=== PATIENT | female | born 2000 | race Caucasian/White ===

== ENCOUNTER → 2019-06-25 | Outpatient (CLI) | payer OTHER, SELFPAY ==
[2018-11-01 11:14] VITALS: BMI 27.4
[2019-06-25 15:41] LABS: Hematocrit 42.8 % (37-47); Hemoglobin 14.3 g/dL (12.0-15.0); Mean Corp Hgb Conc 33.4 g/dL (32-36); Mean Corpuscular Hgb 30.2 pg (27.0-32.0); Mean Corpuscular Volume 90.3 fL (81-99); Mean Platelet Vol. 9.3 fl (6.2-12.0); Platelet Count 309 K/mm3 (150-450); RBC Distribution Width CV 12.2 % (11.6-14.6); RBC Distribution Width SD 40.8 fl (35.1-43.9); Red Blood Count 4.74 M/mm3 (4.2-5.4); White Blood Count 5.8 K/mm3 (4.4-11.0)
[2019-06-25 16:04] LABS: Thyroid Stim Hormone (TSH) 0.51 uIU/mL (0.358-3.74)
[2019-06-27 16:40] LABS: Free T3 2.9 pg/mL (2.18-3.98); T4 Free Direct 1.04 ng/dL (0.76-1.46)
== END | disposition home or self-care (01) ==
PROVIDERS: Visit Provider Obstetrics & Gynecology
DX: N92.0 Excessive and frequent menstruation with regular cycle (principal)
CPT/HCPCS: 36415; 84439; 84443; 84481; 85027

== ENCOUNTER → 2019-08-19 05:59 | Outpatient (CLI) | payer OTHER, SELFPAY ==
[2018-11-01 11:14] VITALS: BMI 27.4
[2019-08-19 07:11] LABS: Hematocrit 42.1 % (37-47); Hemoglobin 13.7 g/dL (12.0-15.0); Mean Corp Hgb Conc 32.5 g/dL (32-36); Mean Corpuscular Hgb 29.5 pg (27.0-32.0); Mean Corpuscular Volume 90.7 fL (81-99); Mean Platelet Vol. 9.5 fl (6.2-12.0); Platelet Count 319 K/mm3 (150-450); RBC Distribution Width CV 12.5 % (11.6-14.6); RBC Distribution Width SD 41.2 fl (35.1-43.9); Red Blood Count 4.64 M/mm3 (4.2-5.4); White Blood Count 8.1 K/mm3 (4.4-11.0)
[2019-08-19 07:17] LABS: Prothrombin Time (Protime)PT. 13.1 SECONDS (11.7-14.9)
[2019-08-19 07:50] LABS: ALB/GLOB Ratio 1.2 RATIO (0.9-2.4); AST(SGOT) 6 U/L (15-37); Alanine Aminotransfer ALT/SGPT 17 U/L (13-56); Alkaline Phosphatase 51 U/L (45-117); Anion Gap 8 (5-15); BUN 12 mg/dL (7-18); Calcium,Total 8.9 mg/dL (8.5-10.1); Chloride 104 mmol/L (98-107); Creatinine, Serum 0.75 mg/dL (0.55-1.02); EST Glomerular Filtration Rate 105 mL/min (>60); Est Glom Filt Rate - Afr Amer 127 mL/min (>60); Globulin 3.4 g/dL (2.2-4.2); Glucose 78 mg/dL (74-106); Potassium 3.6 mmol/L (3.5-5.1); Protein, Total 7.4 g/dL (6.4-8.2); Sodium Level 138 mmol/L (136-145); Thyroid Stim Hormone (TSH) 2.39 uIU/mL (0.358-3.74)
[2019-08-24 03:06] LABS: Factor VIII Activity 102 % (56-140); von Willebrand Factor Activity 108 % (50-200)
[2019-08-24 13:45] LABS: VWD Studies Interp Report Note (.); von Willebrand Factor (vWF) Ag 122 % (50-200)
== END ==
PROVIDERS: Family Provider Student in an Organized Health Care Education/Training Program; PCP Student in an Organized Health Care Education/Training Program; Referring Provider Student in an Organized Health Care Education/Training Program; Visit Provider Student in an Organized Health Care Education/Training Program
DX: R42 Dizziness and giddiness (principal); R53.83 Other fatigue; R23.8 Other skin changes; E27.40 Unspecified adrenocortical insufficiency
CPT/HCPCS: 36415; 80053; 82533; 84443; 85027; 85240; 85245; 85246; 85610

== ENCOUNTER → 2019-11-26 13:50 | Outpatient (CLI) | payer OTHER, SELFPAY ==
[2019-11-13 15:53] VITALS: BMI 25.2
--- NOTE | 2019-11-26 13:50 | ECHOD_ITS ---
Reason For Study: SYNCOPE/NEAR SYNCOPE Procedure This was a 2D Doppler, Color Flow transthoracic echocardiogram. Exam performed in department. Left Ventricle Normal LV size. Left ventricular systolic function is normal. The estimated ejection fraction is 60 %. Normal diastology for age. No regional wall motion abnormalities noted. Right Ventricle Normal RV size. Normal systolic function. Atria Normal left atrium. Normal right atrium. Mitral Valve Normal mitral valve. Tricuspid Valve Normal tricuspid valve. Aortic Valve Normal aortic valve. Trisinus/trileaflet aortic valve. Pulmonic Valve Normal pulmonic valve. Great Vessels Normal aortic root. Pericardium/Pleural No pericardial effusion. MMode/2D Measurements & Calculations LVIDd: 4.4 cm IVSd: 0.61 cm Ao root diam: 2.5 cm LVIDs: 2.9 cm LVPWd: 0.69 cm RVDd: 2.8 cm FS: 35.9 % LAV(MOD-bp): 43.9 ml LA A4 area: 16.4 cm2 LA dimension(2D): 3.3 cm LAV(MOD-bp) Indexed: 27.9 ml/m2 LAV(MOD-sp2): 42.3 ml LAV(MOD-sp4): 42.3 ml RA A4 area: 16.3 cm2 Time Measurements MV dec time: 0.20 sec Doppler Measurements & Calculations MV E max feliciano: 97.2 cm/sec Lat Peak E' Feliciano: 22.3 cm/sec Med Peak E' Feliciano: 16.8 cm/sec MV A max feliciano: 51.7 cm/sec E/E' lat: 4.4 E/E' med: 5.8 MV E/A: 1.9 Ao V2 max: 132.9 cm/sec LV V1 max: 115.3 cm/sec PA V2 max: 99.0 cm/sec Ao max P.1 mmHg LV V1 max P.3 mmHg TR max feliciano: 230.9 cm/sec TR max P.4 mmHg Interpretation Summary Normal LV size. Left ventricular systolic function is normal. The estimated ejection fraction is 60 %. Structurally normal valves. Ordering Physician: José Miguel Valladares Referring Physician: Alcides Siddiqui Performed By: Olga Schmitt RDCS, RVT
== END ==
PROVIDERS: PCP Student in an Organized Health Care Education/Training Program; Referring Provider Internal Medicine Cardiovascular Disease; Visit Provider Internal Medicine Cardiovascular Disease
DX: I95.1 Orthostatic hypotension (principal)
CPT/HCPCS: 93306

== ENCOUNTER → 2020-08-04 11:40 | Outpatient (CLI) | payer OTHER, SELFPAY ==
[2020-04-22 09:28] VITALS: BMI 23.2
[2020-08-06 15:20] LABS: HPV Reflexed? NOT INDICATED
== END | disposition home or self-care (01) ==
LOC: LABSPEC 11:41
PROVIDERS: PCP Student in an Organized Health Care Education/Training Program; Visit Provider Obstetrics & Gynecology
CPT/HCPCS: 88175; G0145

== ENCOUNTER 2020-10-13 14:30 | Outpatient (RCR) | payer OTHER, SELFPAY ==
[2019-11-13 15:53] VITALS: BMI 25.2
--- NOTE | 2020-04-16 18:35 | MASS.EVAL_ITS ---
Massage Therapy Evaluation: Initial Evaluation Date: 04/15/2020 SUBJECTIVE: Fabiola is a 19 year old female who was referred to the [facility] facility for a massotherapy evaluation by Dr. Alcides Siddiqui with the diagnosis of back pain. She presents today with the symptoms of pain, stiffness and tension in the neck, mid back, low back and hips. Fabiola reports having a past medical history of neck, back pain and hip pain. She reports that she has a history of skin conditions: hidradentitis suppurativa and seborrhea, and a heart condition Dx: POTS. She reports having minimal improvement with exercise and stretching and has had these symptoms for many years. OBJECTIVE: Upon observation Fabiola has some posture issues with her head and shoulders forward from the neutral position in sitting and standing. After examination and palpation, I found Fabiola to have high muscle tension with tenderness and myofascial restrictions in her pectorals, sub occipitals, levator scapulae, trapezius, rhomboids, scalenes, and thoracic paraspinals. Her QL?s, lumbar paraspinals, piriformis, glute medius and minimus all were very tight with fascial restrictions, tender points and trigger points. The first treatment consisted of a one hour massage to her upper body and posterior lower ext. with myofascial release, muscle stripping, trigger point compression techniques, and cervical manual traction. ASSESSMENT: I feel that Fabiola is a good candidate for massotherapy at this time. She had a favorable response to the first treatment with reduction in her muscle aches, pain and tension. She also had improvement in her cervical flexibility and low back flexibility. PLAN: The plan of care was reviewed with the patient. The patient is to be seen on an as needed basis for a total of ten sessions with the recommendation of one-two times per month for a one hour treatment.
--- NOTE | 2020-10-13 18:54 | MASS.DISCH ---
Massage Therapy Discharge Summary: Discharge Date: 10/13/2020 Fabiola was seen for a massotherapy evaluation on 04/15/2020 with the diagnosis of back pain. She was treated with ten sessions of massage therapy consisting of deep pressure soft tissue techniques, myofascial release and trigger point compression to her cervical, thoracic, lower back, lower extremities and hips. Fabiola responded well to the therapy by reporting decreased tension and pain throughout her neck, shoulders, lower back and hips. Her goals for therapy were met throughout the treatment sessions. At this time this patient is being discharged from our care at [facility] facility.
== END 2020-10-13 19:00 | disposition home or self-care (01) ==
LOC: MASS 14:30
PROVIDERS: PCP Student in an Organized Health Care Education/Training Program; Referring Provider Student in an Organized Health Care Education/Training Program; Visit Provider Student in an Organized Health Care Education/Training Program
DX: M54.9 Dorsalgia, unspecified (principal)
CPT/HCPCS: 97124

== ENCOUNTER 2021-03-12 00:28 | Emergency (ER) | payer OTHER, SELFPAY ==
[2020-12-01 12:33] VITALS: BMI 21.1
[2021-03-12 00:30] VITALS: BP 125/61; PULSE 100; RESP 16; TEMP 36.3; O2SAT 100; BMI 22.2
--- NOTE | 2021-03-12 00:40 | ED.RN ---
NO OLD EKGS IN MUSE
--- NOTE | 2021-03-12 00:50 | EKG12_ITS ---
Test Reason : CP Blood Pressure : / mmHG Vent. Rate : 084 BPM Atrial Rate : 084 BPM P-R Int : 136 ms QRS Dur : 084 ms QT Int : 392 ms P-R-T Axes : 041 039 038 degrees QTc Int : 463 ms Normal sinus rhythm with sinus arrhythmia Normal ECG Confirmed by YOLANDE FONTENOT, GUSTAVO ([id number]), copy editor MIMI LOPES ([id number]) on 03/16/2021 10:07:59 A M Referred By: DANIELLA Confirmed By:HUGO LANIER MD
[2021-03-12 00:54] VITALS: O2SAT 100
[2021-03-12 00:59] LABS: Absolute Lymphocyte Count 3.55 X10^3/uL (0.83-4.51); Basophil# 0.04 X10^3/uL; Basophil% 0.3 % (0-1); Eosinophil# 0.09 X10^3/uL; Eosinophils% 0.7 % (0-5); Hematocrit 41.8 % (37-47); Lymphocyte # 3.55 X10^3/ul (0.83-4.51); Lymphocyte % 28.5 % (19-41); Mean Corp Hgb Conc 33.5 g/dL (32-36); Mean Corpuscular Hgb 30.6 pg (27.0-32.0); Mean Corpuscular Volume 91.3 fL (81-99); Mean Platelet Vol. 9.4 fl (6.2-12.0); Monocyte# 0.73 X10^3/uL; Monocyte% 5.9 % (0-10); NRBC Flagged by Analyzer 0 % (0-5); Neutrophil # 8.03 X10^3/uL (2.7-7.7); Neutrophil % 64.4 % (47-70); Platelet Count 294 K/mm3 (150-450); RBC Distribution Width CV 12.2 % (11.6-14.6); RBC Distribution Width SD 40.9 fl (35.1-43.9); Red Blood Count 4.58 M/mm3 (4.2-5.4); White Blood Count 12.5 K/mm3 (4.4-11.0)
[2021-03-12] MEDS: 0.9% Normal Saline 1,000 ML 1000 ML IV (00:59)
[2021-03-12] MEDS: Ketorolac 15 MG/ML Vial IV (00:59)
--- NOTE | 2021-03-12 01:03 | RAD_ITS ---
STUDY: X-RAY CHEST REASON FOR EXAM: Female, 20 years old. chest pain and sob starting tonight. TECHNIQUE: Single AP portable view of the chest. COMPARISON: 11/10/2014. FINDINGS: The lungs are clear and expanded. There is no demonstrated pleural abnormality. Normal size heart. Normal mediastinum and meredith. Normal visualized pulmonary arteries. Normal visualized aortic arch and descending thoracic aorta. Normal visualized thoracic spine. Normal visualized ribs, clavicles, and shoulders. There is no demonstrated abnormality of the visualized soft tissue structures of the upper abdomen. RAD/Chest 1 View (Portable) IMPRESSION: Normal x-ray examination of the chest. Electronically Signed: Maryann Yarbrough MD at 1:31 EDT , Service support ,
[2021-03-12 01:07] LABS: Internal QC Validated? YES +Cl - CLEAR BKGD; Pregnancy, Serum, hCG Quali. NEGATIVE Negative
[2021-03-12 01:17] LABS: Anion Gap 7 (5-15); BUN 15 mg/dL (7-18); BUN/Creat Ratio 19.4 RATIO (10-20); Calcium,Total 9.4 mg/dL (8.5-10.1); Chloride 106 mmol/L (98-107); Creatinine, Serum 0.77 mg/dL (0.55-1.02); EST Glomerular Filtration Rate 99 mL/min (>60); Est Glom Filt Rate - Afr Amer 120 mL/min (>60); Estimated Creatinine Clearance 108.19 ml/min; Glucose 88 mg/dL (74-106); Potassium 3.7 mmol/L (3.5-5.1); Sodium Level 140 mmol/L (136-145)
[2021-03-12 01:28] VITALS: BP 100/69; PULSE 89; RESP 17; O2SAT 98
--- NOTE | 2021-03-12 01:44 | ED.VIS.CHEST ---
HPI History of Present Illness Chief Complaint: Chest Pain Narrative Narrative: Patient reports that 5:00 this evening while riding in a car she had the onset of a substernal chest pressure. Rates up into her neck and into her back. It is gradually gotten worse. It is 6 out of 10 severity currently and at worst. Is worsened by movement of her arm or torso. Is also worsened by breathing. She relieved by remaining still. She denies any associated nausea, vomiting, or diaphoresis. She does report that she feels short of breath with this. Patient [place] any personal or family history of DVT. No recent travel. No ankle swelling or calf pain. She does not smoke. She is not on control pills. [facility] Medical History (Updated 03/12/21 @ 01:[address] Kingsley Bran MD) Bilateral elbow fractures Difficulty balancing Fatigue Hay fever History of food poisoning History of hemorrhoids Hypoadrenalism NECK/BACK PAIN Orthostasis POTS (postural orthostatic tachycardia syndrome) Shoulder pain UNEXPLAINED BRUISES Home Medications cetirizine 10 mg capsule 10 mg PO DAILY 11/01/18 [History Last Taken Unknown] montelukast 10 mg tablet 10 mg PO QPM 11/01/18 [History Last Taken Unknown] lactobacillus combination no.4 3 billion cell capsule 3,000 mmu cells PO DAILY 11/13/19 [History Last Taken Unknown] multivitamin 1 tab PO DAILY 11/13/19 [History Last Taken Unknown] ascorbate calcium (vitamin C) 500 mg tablet 500 mg PO DAILY 12/01/20 [History Last Taken Unknown] cholecalciferol (vitamin D3) 50 mcg (2,000 unit) capsule 50 mcg PO DAILY 12/01/20 [History Last Taken Unknown] sodium chloride 1 gram tablet 1,000 mg PO BID #180 tab 12/01/20 [Rx Last Taken Unknown] zinc 50 mg tablet 50 mg PO DAILY 12/01/20 [History Last Taken Unknown] Allergy/AdvReac Type Severity Reaction Status Date / Time animal dander AdvReac Unknown Verified 03/12/21 00:33 house dust AdvReac Unknown Verified 03/12/21 00:33 latex AdvReac Unknown Verified 03/12/21 00:33 tree and shrub pollen AdvReac Unknown Verified 03/12/21 00:33 Family History Mother Migraine Crohn disease Social History Smoking Status: Never smoker alcohol intake: never ROS ROS ED Constitutional Constitutional ED: Denies chills, fever(s) or sweats Eyes Eyes: Denies change in vision ENT ENT ED: Denies sore throat Cardiovascular Cardiovascular: Reports chest pain Respiratory/Chest Respiratory/Chest: Reports dyspnea; Denies cough or dyspnea on exertion Gastrointestinal Gastrointestinal: Denies abdominal pain, diarrhea, melena, nausea or vomiting Genitourinary Genitourinary ED: Denies dysuria or urinary frequency Musculoskeletal Musculoskeletal: Denies myalgias Integumentary Denies rash Neurologic Neurologic: Denies headache(s), paresthesias or weakness EXAM Physical Exam Const Vital Signs: 03/12/21 00:30 03/12/21 00:33 03/12/21 00:54 Temperature 97.3 F L Temperature Source Temporal Pulse Rate 100 Respiratory Rate 16 Respiratory Effort Normal Non-Labored Blood Pressure 125/61 H Blood Pressure Mean 82 Pulse Ox 100 100 Oxygen Delivery Method Room Air Room Air Positive well nourished and well developed General Appearance ED: well developed HEENT Reports normocephalic and head/scalp atraumatic Eyes PERRL Neck no lymphadenopathy, supple and no JVD General: Negative for tenderness Resp normal respiratory effort and clear to auscultation bilaterally Resp Narrative: Chest is nontender. Effort and Inspection: pain with movement Cardio regular rate, regular rhythm and no murmurs GI normal to inspection, nondistended, normoactive bowel sounds and non-tender GI Narrative: No guarding, rebound, or peritoneal signs. Palpation: soft Back/Spine Back/Spine Narrative: Nontender. Extremity General Extremety ED: Negative for edema or tenderness General Extremity: Negative for edema Neuro oriented x3, CN's II-XII intact bilaterally and no sensory deficits noted Sensorium / Orientation: alert Motor Exam: strength 5/5 throughout Psych mental status grossly normal Skin no rashes or lesions noted Heart Score History: Slightly/Non-Suspicious ECG: Normal Age: </= 45 years Risk Factors: 1 or 2 Risk Factors Troponin: </= Normal Limit Score: 1 MDM MDM Lab Data Labs: Laboratory Results - last 24 hr 05/21/21 05/21/21 05/21/21 00:40 00:40 00:40 WBC 12.5 H RBC 4.58 Hgb 14.0 Hct 41.8 MCV 91.3 MCH 30.6 MCHC 33.5 RDW Std Deviation 40.9 RDW Coeff of Frank 12.2 Plt Count 294 MPV 9.4 Immature Gran % (Auto) 0.200 Neut % (Auto) 64.4 Lymph % (Auto) 28.5 [place] % (Auto) 5.9 Eos % (Auto) 0.7 Baso % (Auto) 0.3 Absolute Neuts (auto) 8.0 H Absolute Lymphs (auto) 3.55 Nucleated RBC % 0 D-Dimer Quant (PE/DVT) Sodium 140 Potassium 3.7 Chloride 106 Carbon Dioxide 27.0 Anion Gap 7 BUN 15 Creatinine 0.77 Estim Creat Clear Calc 108.19 Est GFR (MDRD) Af Amer 120 Est GFR (MDRD) Non-Af 99 BUN/Creatinine Ratio 19.4 Glucose 88 Calcium 9.4 Troponin I < 0.015 Serum , Qual NEGATIVE 03/12/21 00:40 WBC RBC Hgb Hct MCV MCH MCHC RDW Std Deviation RDW Coeff of Frank Plt Count MPV Immature Gran % (Auto) Neut % (Auto) Lymph % (Auto) [place] % (Auto) Eos % (Auto) Baso % (Auto) Absolute Neuts (auto) Absolute Lymphs (auto) Nucleated RBC % D-Dimer Quant (PE/DVT) 0.35 Sodium Potassium Chloride Carbon Dioxide Anion Gap BUN Creatinine Estim Creat Clear Calc Est GFR (MDRD) Af Amer Est GFR (MDRD) Non-Af BUN/Creatinine Ratio Glucose Calcium Troponin I Serum , Qual Radiography Chest X-Ray - ED: 1 View and Read by ED Physician Diagnostic Testing: Radiology Impression Chest X-Ray 03/12/21 01:03 IMPRESSION: Normal x-ray examination of the chest. Electronically Signed: Maryann Yarbrough MD at 1:31 EDT , Service support , Chest x-ray shows no acute disease. EKG Initial EKG: Attestation: I personally reviewed and interpreted this EKG as follows: Interpretation: Sinus Arrythmia and Non-Specific ST Changes Comments: EKG is sinus at [address] changes. Treatment and Re-Evaluation Comments:: Emergency department course: Patient had an IV placed. She was given a dose of Toradol IV. She is resting comfortably. Treatment plan: Patient be discharged instructions use naproxen for pain. Follow-up with her primary care physician in 3 to 5 days if not improving. Return to the emergency department for any worsening symptoms. Disposition: To home in improved and stable condition. Discharge Plan Triage Chief Complaint: Chest Pain ED Provider: Kingsley Bran Dx/Rx/DC Orders Clinical Impression: Atypical chest pain Instructions: ED Chest Pain, Uncertain Cause Prescriptions: No Action Zyrtec 10 mg capsule 10 mg PO DAILY RF: 0 montelukast [Singulair] 10 mg tablet 10 mg PO QPM RF: 0 multivitamin Tablet 1 tab PO DAILY RF: 0 Probiotic 3 billion cell capsule 3,000 mmu cells PO DAILY RF: 0 cholecalciferol (vitamin D3) 50 mcg (2,000 unit) capsule 50 mcg PO DAILY RF: 0 ascorbate calcium (vitamin C) 500 mg tablet 500 mg PO DAILY RF: 0 zinc 50 mg tablet 50 mg PO DAILY RF: 0 sodium chloride 1 gram tablet 1,000 mg PO BID Qty: 180 RF: 3 Primary Care Provider: Alcides Siddiqui Referrals: Alcides Siddiqui DO [Primary Care Provider] - 3-5 Days if not improving
[2021-03-12 02:01] LABS: D-Dimer Quantitative (DVT/PE) 0.35 FEU/ug/m (0.27-0.49)
== END 2021-03-12 02:14 | disposition home or self-care (01) ==
PROVIDERS: Emergency Provider Emergency Medicine; PCP Student in an Organized Health Care Education/Training Program
DX: R07.89 Other chest pain (principal); R06.00 Dyspnea, unspecified
CPT/HCPCS: 71045; 80048; 84484; 84703; 85025; 85379; 93005; 96361; 96374; 99284; J7030; A4216

== ENCOUNTER 2021-10-13 10:45 | Outpatient (RCR) | payer OTHER, SELFPAY ==
[2020-12-01 12:33] VITALS: BMI 21.1
--- NOTE | 2021-02-23 10:38 | MASS.EVAL ---
Massage Therapy Evaluation: Initial Evaluation Date: 02/18/2021 SUBJECTIVE: Fabiola is a 20 year old female who was referred to the [facility] for a massotherapy evaluation by Dr. Siddiqui with the diagnosis of muscle spasms. She presents today with the symptoms of pain, stiffness and tension in the neck, head, mid back, low back, and hips. Fabiola reports having a past medical history of chronic neck and back pain and complains of radiating pain in her neck and legs. She reports having minimal improvement with exercise and stretching over the last few months. OBJECTIVE: Upon observation Fabiola has some posture issues with her head and shoulders forward from the neutral position in sitting and standing. After examination and palpation, I found Fabiola to have high muscle tension with tenderness and myofascial restrictions in her sub occipitals, levator scapulae, trapezius, rhomboids, scalenes, and thoracic paraspinals. Her QL?s, lumbar paraspinals, piriformis, ITB?s, glute medius and minimus all were very tight with fascial restrictions, tender points and trigger points. The first treatment consisted of a one hour massage to her upper body and posterior lower extremities with myofascial release, muscle stripping, trigger point compression techniques, and cervical manual traction. ASSESSMENT: I feel that Fabiola is a good candidate for massotherapy at this time. She had a favorable response to the first treatment with reduction in her muscle aches, pain and tension. She also had improvement in her cervical flexibility and low back flexibility. PLAN: The plan of care was reviewed with the patient. The patient is to be seen on an as needed basis for a total of ten sessions with the recommendation of once every month for a one hour treatment.
--- NOTE | 2021-10-13 14:38 | DS.PCM_ITS ---
Massage Therapy Discharge Summary: Discharge Date: 10/13/2021 Fabiola was seen for a massotherapy evaluation on 02/18/2021 with the diagnosis of back pain. She was treated with nine sessions of massage therapy consisting of deep pressure soft tissue techniques, myofascial release and trigger point compression to his cervical, thoracic, lower back and hips. Fabiola responded well to the therapy by reporting decreased tension and pain throughout her neck, shoulders, lower back, lower extremities and hips. Her goals for therapy were met throughout the treatment sessions. At this time this patient is being discharged from our care at [facility] facility.
== END 2021-10-13 19:00 | disposition home or self-care (01) ==
LOC: MASS 10:45
PROVIDERS: PCP Student in an Organized Health Care Education/Training Program; Referring Provider Student in an Organized Health Care Education/Training Program; Visit Provider Student in an Organized Health Care Education/Training Program
DX: M62.830 Muscle spasm of back (principal)
CPT/HCPCS: 97124

== ENCOUNTER 2022-01-20 11:34 | Outpatient (CLI) | payer OTHER, SELFPAY ==
[2022-01-20 07:21] LABS: Hematocrit 39.6 % (37-47); Hemoglobin 13.5 g/dL (12.0-15.0); Mean Corp Hgb Conc 34.1 g/dL (32-36); Mean Corpuscular Hgb 31.6 pg (27.0-32.0); Mean Corpuscular Volume 92.7 fL (81-99); Mean Platelet Vol. 9.5 fl (6.2-12.0); Platelet Count 304 K/mm3 (150-450); RBC Distribution Width CV 12.3 % (11.6-14.6); RBC Distribution Width SD 42.1 fl (35.1-43.9); Red Blood Count 4.27 M/mm3 (4.2-5.4); White Blood Count 6.6 K/mm3 (4.4-11.0)
[2022-01-20 08:11] LABS: Hemoglobin A1c 4.8 % (3.8-5.6)
[2022-01-20 08:12] LABS: ALB/GLOB Ratio 1.2 RATIO (0.9-2.4); AST(SGOT) 11 U/L (15-37); Alanine Aminotransfer ALT/SGPT 19 U/L (13-56); Albumin, Serum 3.8 g/dL (3.2-5.0); Alkaline Phosphatase 44 U/L (45-117); Anion Gap 5 (5-15); BUN 16 mg/dL (7-18); BUN/Creat Ratio 22.8 RATIO (10-20); Calcium,Total 8.8 mg/dL (8.5-10.1); Chloride 107 mmol/L (98-107); EST Glomerular Filtration Rate 110 mL/min (>60); Est Glom Filt Rate - Afr Amer 133 mL/min (>60); Globulin 3.1 g/dL (2.2-4.2); Glucose 82 mg/dL (74-106); Potassium 4.2 mmol/L (3.5-5.1); Protein, Total 6.9 g/dL (6.4-8.2); Sodium Level 140 mmol/L (136-145); Thyroid Stim Hormone (TSH) 1.34 uIU/mL (0.358-3.74)
== END 2022-01-20 23:59 | disposition home or self-care (01) ==
LOC: LABSPEC 01-25 11:34
PROVIDERS: PCP Student in an Organized Health Care Education/Training Program; Referring Provider Student in an Organized Health Care Education/Training Program; Visit Provider Student in an Organized Health Care Education/Training Program
DX: R53.83 Other fatigue (principal); R42 Dizziness and giddiness; R11.0 Nausea
CPT/HCPCS: 36415; 80053; 82533; 83036; 84443; 85027

== ENCOUNTER → 2022-07-26 | Outpatient (CLI) | payer OTHER, SELFPAY ==
[2022-07-26 12:38] LABS: Anion Gap 6 (5-15); BUN 10 mg/dL (7-18); BUN/Creat Ratio 13.6 RATIO (10-20); Calcium,Total 8.6 mg/dL (8.5-10.1); Chloride 109 mmol/L (98-107); Creatinine, Serum 0.74 mg/dL (0.55-1.02); EST Glomerular Filtration Rate 104 mL/min (>60); Est Glom Filt Rate - Afr Amer 125 mL/min (>60); Glucose 88 mg/dL (74-106); Magnesium 2.1 mg/dL (1.6-2.6); Sodium Level 141 mmol/L (136-145)
== END | disposition home or self-care (01) ==
LOC: LAB 11:04
PROVIDERS: PCP Student in an Organized Health Care Education/Training Program; Visit Provider Internal Medicine Cardiovascular Disease
DX: I49.8 Other specified cardiac arrhythmias (principal)
CPT/HCPCS: 36415; 80048; 83735

== ENCOUNTER → 2023-06-07 | Outpatient (CLI) | payer OTHER, SELFPAY ==
[2023-06-07 15:43] LABS: Bacteria 0 SEEN /hpf (None Seen); Mucous, Urine 0 SEEN /hpf (<or=2+); White Blood Cells 0 SEEN /hpf (0-5)
[2023-06-07 15:50] LABS: Color, Urine Yellow (Yellow); Glucose, Dipstick Normal (Normal); Ketone-Dipstick Negative (Negative); Leukocyte Esterase-Dipstick Negative /ul (Negative); Nitrite-Dipstick Negative (Negative); Occult Blood-Urine 250 /ul (Negative); Protein-Dipstick Negative (Negative); Urine Bilirubin Dipstick Negative (Negative); Urine Clarity Clear (Clear); Urine Urobilinogen Normal (Normal)
[2023-06-07 16:22] LABS: Red Blood Cells-Urine 0-5 SEEN /hpf (0-5); Squamous Epithelial Cells - UA 0-5 SEEN /hpf (5-10)
== END | disposition home or self-care (01) ==
LOC: LABSPEC 15:19
PROVIDERS: PCP Student in an Organized Health Care Education/Training Program; Referring Provider Physician Assistant; Visit Provider Physician Assistant
DX: R30.0 Dysuria (principal)
CPT/HCPCS: 81001; 87086; 87088

== ENCOUNTER → 2023-07-31 | Outpatient (CLI) | payer OTHER, SELFPAY ==
[2023-07-31 14:43] LABS: Absolute Lymphocyte Count 1.84 X10^3/uL (0.83-4.51); Absolute Neutrophil Count 4.8 X10^3/uL (2.0-7.7); Basophil# 0.04 X10^3/uL; Basophil% 0.5 % (0-1); Eosinophil# 0.17 X10^3/uL; Eosinophils% 2.3 % (0-5); Hematocrit 43.6 % (37-47); Hemoglobin 13.7 g/dL (12.0-15.0); Lymphocyte # 1.84 X10^3/ul (0.83-4.51); Lymphocyte % 24.7 % (19-41); Mean Corp Hgb Conc 31.4 g/dL (32-36); Mean Corpuscular Hgb 29.8 pg (27.0-32.0); Mean Corpuscular Volume 94.8 fL (81-99); Mean Platelet Vol. 9.5 fl (6.2-12.0); Monocyte# 0.54 X10^3/uL; Monocyte% 7.3 % (0-10); NRBC Flagged by Analyzer 0 % (0-5); Neutrophil # 4.82 X10^3/uL (2.7-7.7); Neutrophil % 64.8 % (47-70); Platelet Count 330 K/mm3 (150-450); RBC Distribution Width CV 12.9 % (11.6-14.6); RBC Distribution Width SD 44.5 fl (35.1-43.9); White Blood Count 7.4 K/mm3 (4.4-11.0)
[2023-07-31 15:18] LABS: Vitamin D,25 Hydroxy 25.9 ng/mL
[2023-07-31 15:26] LABS: Anion Gap 5 (5-15); BUN 10 mg/dL (7-18); Calcium,Total 9.5 mg/dL (8.5-10.1); Chloride 106 mmol/L (98-107); Creatinine, Serum 0.71 mg/dL (0.55-1.02); EST Glomerular Filtration Rate 107 mL/min (>60); Est Glom Filt Rate - Afr Amer 129 mL/min (>60); Glucose 81 mg/dL (74-106); Magnesium 2.2 mg/dL (1.6-2.6); Potassium 4.6 mmol/L (3.5-5.1); Sodium Level 139 mmol/L (136-145); Thyroid Stim Hormone (TSH) 0.37 uIU/mL (0.358-3.74)
== END | disposition home or self-care (01) ==
LOC: LAB 13:56
PROVIDERS: PCP Student in an Organized Health Care Education/Training Program; Referring Provider Nurse Practitioner Gerontology; Visit Provider Nurse Practitioner Gerontology
DX: R53.83 Other fatigue (principal); E55.9 Vitamin D deficiency, unspecified
CPT/HCPCS: 36415; 80048; 82306; 83735; 84443; 85025

== ENCOUNTER → 2024-11-04 | Outpatient (CLI) | payer OTHER, SELFPAY ==
[2024-11-06 22:06] LABS: Chlamydia By Nucleic Acid AMP Negative (Negative); Gonococcus By Nucleic Acid AMP Negative (Negative)
[2024-11-08 12:47] LABS: HPV Reflexed? NOT INDICATED
== END | disposition home or self-care (01) ==
PROVIDERS: PCP Student in an Organized Health Care Education/Training Program; Referring Provider Nurse Practitioner Family; Visit Provider Nurse Practitioner Family
DX: Z20.2 Contact with and (suspected) exposure to infections with a predominantly sexual mode of transmission (principal); Z12.4 Encounter for screening for malignant neoplasm of cervix

== ENCOUNTER → 2025-01-25 | Outpatient (CLI) | payer OTHER, SELFPAY ==
[2025-01-25 11:26] LABS: Hematocrit 39.5 % (37-47); Hemoglobin 13.2 g/dL (12.0-15.0); Mean Corp Hgb Conc 33.4 g/dL (32-36); Mean Corpuscular Hgb 30.3 pg (27.0-32.0); Mean Corpuscular Volume 90.8 fL (81-99); Mean Platelet Vol. 8.8 fl (6.2-12.0); Platelet Count 302 K/mm3 (150-450); RBC Distribution Width CV 12.7 % (11.6-14.6); Red Blood Count 4.35 M/mm3 (4.2-5.4); White Blood Count 6.2 K/mm3 (4.4-11.0)
[2025-01-25 11:58] LABS: ALB/GLOB Ratio 1.7 RATIO (0.9-2.4); AST(SGOT) 14 U/L (<=31); Alanine Aminotransfer ALT/SGPT 12 U/L (<=34); Albumin, Serum 4.3 g/dL (3.5-5.0); Alkaline Phosphatase 39 U/L (35-104); Anion Gap 10 (5-15); BUN 17 mg/dL (4-19); BUN/Creat Ratio 22.4 RATIO (10-20); Calcium,Total 9.1 mg/dL (7.6-11.0); Carbon Dioxide 22.8 mmol/L (21.0-32.0); Chloride 106 mmol/L (98-108); Cholesterol 213 mg/dL (<=200); Creatinine, Serum 0.74 mg/dL (0.70-1.20); EST Glomerular Filtration Rate 115 (>60); Globulin 2.5 g/dL (2.2-4.2); Glucose 96 mg/dL (70-99); High Density Lipoprotein 73 mg/dL; Low Density Lipoprotein Calc. 130 mg/dL; Potassium 4.5 mmol/L (3.3-5.1); Protein, Total 6.8 g/dL (5.9-8.4); Sodium Level 139 mmol/L (133-145); Total Bilirubin 0.19 mg/dL (0.00-1.30); Triglycerides 50 mg/dL; Very Low Density Lipoprotein 10 mg/dL (5-40)
[2025-01-25 11:59] LABS: Vitamin B12 611 pg/mL (180-914); Vitamin D,25 Hydroxy 36.9 ng/mL (30-100)
[2025-01-25 12:06] LABS: Free T3 2.9 pg/mL (2.18-3.98); HIV Nonreactive (Nonreactive); Hepatitis B Surface Antigen Nonreactive (Nonreactive); Hepatitis C Antibody Nonreactive (Nonreactive); Syphilis Antibodies Nonreactive (Nonreactive); Thyroid Stim Hormone (TSH) 0.586 uIU/mL (0.300-4.200)
[2025-01-26 08:08] LABS: Thyroid Peroxidase AB < 9 IU/mL (0-34)
== END | disposition home or self-care (01) ==
LOC: LAB 10:41
PROVIDERS: Nurse Practitioner Family; PCP Student in an Organized Health Care Education/Training Program; Referring Provider Student in an Organized Health Care Education/Training Program; Visit Provider Student in an Organized Health Care Education/Training Program
DX: Z13.6 Encounter for screening for cardiovascular disorders (principal); E03.9 Hypothyroidism, unspecified; E55.9 Vitamin D deficiency, unspecified; E53.8 Deficiency of other specified B group vitamins; Z11.59 Encounter for screening for other viral diseases; Z13.29 Encounter for screening for other suspected endocrine disorder; Z20.2 Contact with and (suspected) exposure to infections with a predominantly sexual mode of transmission
CPT/HCPCS: 80053; 80061; 82306; 82607; 82746; 84439; 84443; 84481; 85027; 86376; 86695; 86696; 86703; 86780; 86803; 87340